=== PATIENT | male | born 1990 | race Caucasian/White ===

== ENCOUNTER 2019-09-05 15:25 | Inpatient (IN) | payer SELFPAY ==
[~2019-09-05] VITALS: Ht 188 cm; Wt 101.1 kg
--- NOTE | 2019-09-05 16:31 | PHYS DOC ---
Past History Past Medical History: Alcoholism, Asthma, Seizure Past Surgical History: Other Additional Past Surgical Histo: left humerus fx Additional Smoking Information: chews tobacco Alcohol Use: Heavy Adult General Chief Complaint Chief Complaint: ALCOHOL INTOXICATION HPI HPI 29-year-old male presents with alcohol intoxication. He tells me he drinks 24-30 cans of beer a day. He hasn't been doing this for a long time. He would like to stop drinking. He has been through detox in the past. He tried to stop drinking on his own yesterday and developed shakes. He would like to go to an inpatient program. His last drink of alcohol was an hour ago. Review of Systems Review of Systems Constitutional: Denies fever or chills [] Eyes: Denies change in visual acuity, redness, or eye pain [] HENT: Denies nasal congestion or sore throat [] Respiratory: Denies cough or shortness of breath [] Cardiovascular: No additional information not addressed in HPI [] GI: Denies abdominal pain, nausea, vomiting, bloody stools or diarrhea [] : Denies dysuria or hematuria [] Musculoskeletal: Denies back pain or joint pain [] Integument: Denies rash or skin lesions [] Neurologic: Denies headache, focal weakness or sensory changes [] Endocrine: Denies polyuria or polydipsia [] All other systems were reviewed and found to be within normal limits, except as documented in this note. Allergies Allergies Allergies Coded Allergies Type Severity Reaction Last Updated Verified No Known Drug Allergies 09/05/19 No Physical Exam Physical Exam Constitutional: Well developed, well nourished, no acute distress, non-toxic appearance. [] HENT: Normocephalic, atraumatic, bilateral external ears normal, oropharynx moist, no oral exudates, nose normal. [] Eyes: PERRLA, EOMI, conjunctiva normal, no discharge. [] Neck: Normal range of motion, no tenderness, supple, no stridor. [] Cardiovascular:Heart rate regular rhythm, no murmur [] Lungs & Thorax: Bilateral breath sounds clear to auscultation [] Abdomen: Bowel sounds normal, soft, no tenderness, no masses, no pulsatile masses. [] Skin: Warm, dry, no erythema, no rash. [] Back: No tenderness, no CVA tenderness. [] Extremities: No tenderness, no cyanosis, no clubbing, ROM intact, no edema. [] Neurologic: Alert and oriented X 3, normal motor function, normal sensory function, no focal deficits noted. [] Psychologic: Affect normal, judgement normal, mood normal. [] Current Patient Data Vital Signs Vital Signs Date Time Temp Pulse Resp B/P (MAP) Pulse Ox O2 Delivery O2 Flow Rate FiO2 09/05/19 15:50 97.8 78 18 135/74 (94) 96 Room Air EKG EKG [] Radiology/Procedures Radiology/Procedures [] Course & Med Decision Making Course & Med Decision Making Pertinent Labs and Imaging studies reviewed. (See chart for details) Patient's alcohol was 387. We'll have to admit him to the hospital because he cannot be screened for a detox facility with alcohol this level. He also has elevated liver enzymes consistent with alcohol consumption. I spoke with Dr. Sergey jernigan and he has accepted the patient for admission. [] Dragon Disclaimer Dragon Disclaimer This electronic medical record was generated, in whole or in part, using a voice recognition dictation system. Departure Departure: Impression: Primary Impression: Alcohol intoxication Disposition: ADMITTED INPATIENT Admitting Physician: Yen Bird Condition: STABLE Referrals: PCP,UNKNOWN (PCP) AMENA ESPOSITO DO Sep 05, 2019 16:31
[2019-09-05 16:40] LABS: BASO # 0.1 x10^3/uL (0.0-0.2); BASO % 1 % (0-3); EOS # 0.1 x10^3/uL (0.0-0.7); EOS % 2 % (0-3); HEMATOCRIT 44.6 % (39.0-53.0); HEMOGLOBIN 14.7 g/dL (13.0-17.5); LYMPH # 2.4 x10^3/uL (1.0-4.8); LYMPH % 33 % (24-48); MEAN CORPUSCULAR HEMOGLOBIN 32 pg (25-35); MEAN CORPUSCULAR HGB CONC 33 g/dL (31-37); MEAN CORPUSCULAR VOLUME 97 fL (79-100); MONO # 0.5 x10^3/uL (0.0-1.1); MONO % 8 % (0-9); NEUT # 4.1 x10^3uL (1.8-7.7); NEUT % 57 % (31-73); PLATELET COUNT 130 x10^3/uL (140-400); RED CELL DISTRIBUTION WIDTH 15.1 % (11.5-14.5); WHITE BLOOD COUNT 7.3 x10^3/uL (4.0-11.0)
[2019-09-05 16:54] LABS: CALCIUM 8.4 mg/dL (8.5-10.1); CREATININE 0.6 mg/dL (0.7-1.3); GFR 157.1; POTASSIUM 4.2 mmol/L (3.5-5.1)
[2019-09-05 16:59] LABS: BARBITURATES NEG (NEG); BENZODIAZEPINES NEG (NEG); CANNABINOIDS NEG (NEG); COCAINE NEG (NEG); METHADONE NEG (NEG); OPIATES NEG (NEG); PHENCYCLIDINE NEG (NEG)
[2019-09-05 17:00] LABS: ALBUMIN 3.7 g/dL (3.4-5.0); ALBUMIN/GLOBULIN RATIO 0.7 (1.0-1.7); TOTAL BILIRUBIN 1.9 mg/dL (0.2-1.0); TOTAL PROTEIN 8.7 g/dL (6.4-8.2)
[2019-09-05 17:01] LABS: AMPHETAMINE/METHAMPHETAMINE NEG (NEG)
[2019-09-05 17:09] LABS: BACTERIA,URINE 0 /HPF (0-FEW); BILIRUBIN,URINE NEG (NEG); CLARITY,URINE CLEAR; COLOR,URINE STRAW; GLUCOSE,URINE NEG (NEG); NITRITE,URINE NEG (NEG); SQUAMOUS EPITHELIAL CELL,UR OCC /LPF; UROBILINOGEN,URINE 0.2 mg/dL (0.2 mg/dL); WBC,URINE OCC /HPF (0-4)
[2019-09-05] MEDS ORDERED: MVI, ADULT NO.4 WITH VIT K 10 ML, FOLIC ACID INJ 1 MG, THIAMINE INJ 100 MG in IV NORMAL... IV ONE ×4 (17:30)
[2019-09-05] MEDS ORDERED: ONDANSETRON PF 4 MG/2 ML VIAL. IV PRN (18:15)
--- NOTE | 2019-09-05 18:45 | NUR ---
Admission Note: Pt transported via EMS from ED to ICU room 2. Pt able to ambulate from cart to bed with no assistance. Pt changed into hospital gown and pajama pants. VSS. No c/o pain, n/v, tremors not noted, no sweating, no hallucinations. Advised pt of plan of care, pt agrees. Oriented pt to room, call button, and safety (bed rails padded). Will continue to monitor. Dr. Bird called for alcohol withdrawal orders. Entered.
[2019-09-05 19:00] VITALS: BP 119/79
[2019-09-05] MEDS ORDERED: HALOPERIDOL LACT 5 MG/ML VIAL. IM PRN (19:15)
[2019-09-05] MEDS ORDERED: LORazepam 40 MG in IV NORMAL SALINE 250ML 250 ML IV PRN (19:15)
[2019-09-05] MEDS ORDERED: cloNIDine HCL 0.1 MG TABLET PO PRN (19:15)
[2019-09-05] MEDS ORDERED: diphenhydrAMINE 50 MG/ML VIAL IVP PRN (19:15)
[2019-09-05] MEDS ORDERED: chlordiazePOXIDE HCL 25 MG CAPSULE PO PRN (19:15)
[2019-09-05] MEDS: LORazepam 1 MG TABLET PO PRN ×2 (19:48→20:18)
[2019-09-05 20:00] VITALS: BP 126/62
[2019-09-05 21:00] VITALS: BP 116/64
[2019-09-05 22:00] VITALS: BP 106/43
[2019-09-05 23:00] VITALS: BP 111/68
[2019-09-06] VITALS (24 sets, daily range): BP systolic 101–142; BP diastolic 51–91
[2019-09-06] MEDS: LORazepam 1 MG TABLET PO PRN ×4 (02:21→23:13)
--- NOTE | 2019-09-06 05:02 | NUR ---
Shift Note: Pt a/o x4, VSS, no c/o pain, pt voiding clear yellow urine, CIWA assessed q2hr throughout night, ativan 8mg po given at 1948 and 0221 per CIWA scale and orders. Pt able to sleep throughout night. Oxygen 2 liters NC added d/t pt desat to 85% when sleeping. Pt expresses a desire for IP treatment facility when discharged. Pt also admits he will need a great deal of help to overcome his drinking problem (father, mother, and siblings all drink and pt's lives w/father).
[2019-09-06] MEDS: chlordiazePOXIDE HCL 25 MG CAPSULE PO PRN ×2 (07:32→12:32)
--- NOTE | 2019-09-06 07:44 | NUR ---
PT is able to verbalize understanding of poc. PT shaky, still AxOx3. Pt is visually shaky see ciwa. Will continue to monitor closely. Anjum CASTANEDA
[2019-09-06 08:22] LABS: HEMATOCRIT 41.6 % (39.0-53.0); HEMOGLOBIN 13.8 g/dL (13.0-17.5); RED BLOOD COUNT 4.26 x10^6/uL (4.30-5.70); RED CELL DISTRIBUTION WIDTH 15.3 % (11.5-14.5); WHITE BLOOD COUNT 5.5 x10^3/uL (4.0-11.0)
[2019-09-06 08:31] LABS: ALBUMIN 3.2 g/dL (3.4-5.0); ALBUMIN/GLOBULIN RATIO 0.6 (1.0-1.7); CALCIUM 7.9 mg/dL (8.5-10.1); CREATININE 0.7 mg/dL (0.7-1.3); GFR 131.5; MAGNESIUM 1.7 mg/dL (1.8-2.4); POTASSIUM 4.1 mmol/L (3.5-5.1); TOTAL BILIRUBIN 1.5 mg/dL (0.2-1.0); TOTAL PROTEIN 8.2 g/dL (6.4-8.2)
[2019-09-06] MEDS: MVI, ADULT NO.4 WITH VIT K 10 ML, THIAMINE INJ 100 MG, FOLIC ACID INJ 1 MG in IV NORMAL... IV SCH ×4 (17:35)
--- NOTE | 2019-09-06 17:48 | NUR ---
PT has done very well today. Compliant, and was able to eat all three meals today independently. PT does have tremor, PRN Ativan helps. PT is 24 hours out from last drink as of now. Will continue to monitor. Anjum CASTANEDA
--- NOTE | 2019-09-06 19:59 | HP ---
ADMIT DATE: 09/05/2019 HISTORY OF PRESENT ILLNESS: The patient is a 29-year-old male patient who presented to the emergency room with alcohol intoxication. He stated that he drinks between 24-30 cans of beer a day. He has been doing this for a long time. He would like to stop drinking, has been through detox in the past. He tried to stop drinking on his own and yesterday he developed shakes. He would like to go to an inpatient program. His last drink of alcohol was about an hour prior to arrival to the emergency room. He was evaluated in the emergency room and his lab work showed that his liver enzymes are markedly elevated. Urinalysis was unremarkable. His blood alcohol level was 387 mg/dL and therefore the patient was admitted for detoxification. PAST MEDICAL HISTORY: Significant for bronchial asthma, has had seizure disorder whenever he stops drinking and obviously alcoholism. PAST SURGICAL HISTORY: Significant for left humeral fracture, status post open reduction and internal fixation. ALLERGIES: He has no known drug allergies. FAMILY HISTORY: Noncontributory. SOCIAL HISTORY: He lives with his girlfriend, apparently he is . His ex- lives in [place] and he has a child with her and child with his girlfriend who herself does not drink. 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 PHYSICAL EXAMINATION: GENERAL: On arrival to the emergency room, the patient was clearly intoxicated, but well-developed, well-nourished 29-year-old male in no acute distress. There is no pallor, jaundice, cyanosis, or thyromegaly. No jugular venous distension. No lower limb edema. VITAL SIGNS: Heart rate was 77, blood pressure was 119/72, temperature was 97.9, respiratory rate was 14 and oxygen saturation was 97% on 2 liters of oxygen. HEAD, EYES, EARS, NOSE AND THROAT: Showed normocephalic, atraumatic. NECK: Supple. HEART: Showed normal first and second heart sounds. No gallop, rub or murmur. CHEST: Clear to auscultation. No crepitation or rhonchi. ABDOMEN: Distended, soft, nontender. NEUROLOGIC: He was grossly intact. LABORATORY DATA: On admission showed that his white cell count was 7300, hemoglobin 15, hematocrit 45, MCV 97 and platelet count of 130,000. Serum sodium was 140, potassium 4.2, chloride 103, bicarbonate 22, anion gap of 15, BUN 4, creatinine 0.6, estimated GFR was 157 mL per minute. His glucose was 96, calcium was 8.4. Total bilirubin is 1.6. AST, ALT, alkaline phosphatase are all elevated. Total protein was 8.7, albumin was 3.7. Urinalysis was essentially unremarkable and toxic screen was negative except for a blood alcohol level of 387. ASSESSMENT AND PLAN: In summary, this is a 29-year-old male patient who came, admitted for alcohol intoxication. Given his blood alcohol level, he was admitted to the hospital. He has obviously markedly impaired liver enzymes consistent with alcohol-induced liver disease. He was started on alcohol withdrawal protocol with the banana bag. We will repeat his lab work and blood alcohol level and once he has gone through the alcohol withdrawal, we will also contact our social service liaison to see if he can be admitted to a detox facility. ZHAO MUELLER MD DR: SANTIAGO/lauryn JOB#: [id number] / [id number]
--- NOTE | 2019-09-06 22:59 | PN ---
DATE: 09/06/2019 SUBJECTIVE: The patient is resting, slightly propped up in bed, in no apparent respiratory distress. He is definitely awake, alert, has insight into his problems. However, he has been drinking since he was 14 years old, and apparently lives around people who are also drinking alcohol, although according to him, he now lives with his father, has alcoholic liver cirrhosis and end-stage renal disease, on hemodialysis. PHYSICAL EXAMINATION: GENERAL: When I saw him today, he looked well and was clearly in no apparent respiratory distress. VITAL SIGNS: Stable. His heart rate was 75, blood pressure 114/63, temperature was 97.9, respiratory rate was 15, and oxygen saturation was 98%. The rest of clinical exam is stable. LABORATORY DATA: His lab works showed that his blood alcohol level is down to 13. His serum sodium was 142, potassium 4.1, chloride 104, bicarbonate 28, anion gap of 10, BUN 5, creatinine 0.7, estimated GFR was 131 mL per minute. Glucose was 98, calcium was 7.9, magnesium was 1.7. Total bilirubin, AST, ALT, alkaline phosphatase are elevated, although they are trending down. His total protein was 8.2 and albumin was 3.2. ASSESSMENT AND PLAN: In summary, this is a patient who was admitted with alcohol intoxication. He is probably going into alcohol withdrawal and he is now on alcohol withdrawal protocol. He gets a banana bag together with all other medication available. ZHAO MUELLER MD DR: SANTIAGO/lauryn JOB#: [id number] / [id number]
[2019-09-07] VITALS (24 sets, daily range): BP systolic 97–141; BP diastolic 50–82
--- NOTE | 2019-09-07 01:53 | NUR ---
Pt is finally resting at this time. Pt was extremely restless earlier. See CIWA scale. Pt just dropped O2 sats to 89%, oxygen placed on patient. Will continue to monitor.
[2019-09-07 05:43] LABS: ALBUMIN/GLOBULIN RATIO 0.6 (1.0-1.7); CALCIUM 8.2 mg/dL (8.5-10.1); CREATININE 0.5 mg/dL (0.7-1.3); GFR 193.9; MAGNESIUM 1.8 mg/dL (1.8-2.4); POTASSIUM 3.9 mmol/L (3.5-5.1); TOTAL BILIRUBIN 3.9 mg/dL (0.2-1.0); TOTAL PROTEIN 7.9 g/dL (6.4-8.2)
[2019-09-07] MEDS ORDERED: ONDANSETRON ODT 4 MG TAB.RAPDIS PO PRN (07:45)
[2019-09-07] MEDS: LORazepam 1 MG TABLET PO PRN ×3 (07:54→23:17)
--- NOTE | 2019-09-07 08:05 | NUR ---
UPON ASSESSMENT BRUISE NOTED TO R SIDE WHEN ASKING PATIENT ABOUT THE BRUISE PT STATES "I WAS LOADING WOOD AND FELL AND HAD A SEIZURE AND FELL." PT REPORTS HE HAS NOT SEEN A NEUROLOGIST. PT IS IN SEIZURE PRECAUTIONS WITH BOTH UPPER AND LOWER SIDE RAILS PADDED.
--- NOTE | 2019-09-07 09:31 | NUR ---
PT IS PLEASANT AT THIS TIME. PT APPEARS TO BE IN MILD DISTRESS. NO COMPLAINTS OF PAIN UPON ASSESSMENT. PT HAS AN UNSTEADY GAIT AND TREMORS TO BILATERAL ARMS. ATIVAN GIVEN TO HELP WITH SYMPTOMS. PT WAS ABLE TO EAT ALL OF HIS BREAKFAST. VSS. WILL CONTINUE TO ASSESS NECESSARY.
[2019-09-07] MEDS: MVI, ADULT NO.4 WITH VIT K 10 ML, THIAMINE INJ 100 MG, FOLIC ACID INJ 1 MG in IV NORMAL... IV SCH ×4 (18:18)
--- NOTE | 2019-09-07 23:11 | PN ---
DATE: 09/07/2019 SUBJECTIVE: The patient is resting, slightly propped up in bed, continued to complain of being shaky. Denied any nausea or vomiting. He continued to be on a banana bag and alcohol withdrawal protocol, so far received 2 doses of Ativan 4 mg orally. PHYSICAL EXAMINATION: GENERAL: When I saw him this afternoon, he looked well and was clearly in no apparent respiratory distress, no pallor, but slightly jaundiced, not cyanosed. No lymphadenopathy, no thyromegaly. No jugular venous distention. No lower limb edema. VITAL SIGNS: Her heart rate was 63, blood pressure 116/67, temperature was 98.2, respiratory rate was 18 and oxygen saturation was 98% on room air. HEAD, EYES, EARS, NOSE AND THROAT: Showed normocephalic, atraumatic. NECK: Supple. HEART: Showed normal first and second heart sounds. No gallop, rub or murmur. CHEST: Clear to auscultation. No crepitation or rhonchi. ABDOMEN: Distended, soft, nontender. No guarding or rigidity. No organomegaly. All hernial orifice intact. Bowel sounds normal. NEUROLOGIC: He was continued to be somewhat tremulous, but without any obvious lateralizing sign. LABORATORY DATA: Showed that his serum sodium was 138, potassium 3.9, chloride 104, bicarbonate 23, anion gap of 11, BUN 8, creatinine 0.5, estimated GFR was 193 mL per minute, glucose was 99, calcium was 8.2, magnesium was 1.8. Total bilirubin 3.9. AST, ALT, alkaline phosphatase are elevated, although they are drifting down except bilirubin is going up. His total protein was 7.9, albumin 3. ASSESSMENT: In summary, this is a 29-year-old male patient who was admitted with alcohol intoxication and alcohol withdrawal. He has also alcohol withdrawal seizures before. PLAN: To continue with alcohol withdrawal protocol for now. I will repeat all his lab work tomorrow and he is stable and his lab works are all within normal range. He can be discharged home. ZHAO MUELLER MD DR: SANTIAGO/lauryn JOB#: [id number] / [id number]
[2019-09-08] VITALS (10 sets, daily range): BP systolic 110–134; BP diastolic 54–86
--- NOTE | 2019-09-08 02:15 | NUR ---
Pt woke up confused and accidentally ripped out IV. Pt woke up and reoriented to place. Pt requested Ativan and it was given per EMAR. Call light in reach. Will continue to monitor.
[2019-09-08] MEDS: LORazepam 1 MG TABLET PO PRN ×3 (02:26→11:26)
--- NOTE | 2019-09-08 04:40 | NUR ---
Pt woke up angry and adament to leave. Told pt it was 0430 in the morning and he stated, "that's the time I normally wake up." Pt got dressed in his own clothes and laid back down. Call light in place. Bed alarm on. Will continue to monitor.
[2019-09-08 06:46] LABS: ALBUMIN 3.3 g/dL (3.4-5.0); ALBUMIN/GLOBULIN RATIO 0.7 (1.0-1.7); CALCIUM 8.5 mg/dL (8.5-10.1); CREATININE 0.6 mg/dL (0.7-1.3); GFR 157.1; TOTAL PROTEIN 8.2 g/dL (6.4-8.2)
[2019-09-08 06:48] LABS: TOTAL BILIRUBIN 3.8 mg/dL (0.2-1.0)
--- NOTE | 2019-09-08 14:37 | NUR ---
CALLED [facility] FOR LIST OF OUTPATIENT SERVICES THAT ARE GOVERNMENT FUNDED DUE TO THE FACT THE PT HAS NO INSURANCE AND NO SOURCE OF INCOME AT THIS TIME. [facility] GAVE PHONE NUMBER FOR [facility]. INFORMATION GIVEN TO PATIENT TO FOLLOW UP WITH THEM TOMORROW.
--- NOTE | 2019-09-08 15:00 | NUR ---
DR. MUELLER AT BEDSIDE DISCUSSING DISCHARGE INSTRUCTIONS WITH PATIENT. PT AGREES TO FOLLOW UP WITH [facility] TOMORROW MORNING AND TO TAKE HIS MEDICATIONS PRESCRIBED.
[2019-09-08] MEDS ORDERED: LACT10SO26 PO ×2 (15:26→15:27)
[2019-09-08] MEDS ORDERED: LORA-254 PO (15:32)
--- NOTE | 2019-09-08 16:13 | NUR ---
Discharge Note: [facility] ICU BED 2 Discharge instructions and discharge home medications reviewed with Patient and a copy given. All questions have been answered and understanding verbalized. The following instructions and handouts were given: TAKE LACTULOSE 10 ML BID; TAKE ATIVAN PRESCRIBED. FOLLOW UP WITH [facility] TOMORROW MORNING. NO ALCOHOL INTAKE. Discontinued lines and drains: DISCONTINUE IV IN L HAND. PRESSURE APPLIED. BANDAGE APPLIED. Patient discharged to HOME ACCOMPANIED BY HIS FATHER.
--- NOTE | 2019-09-08 16:28 | DS ---
DATE OF DISCHARGE: HOSPITAL COURSE: The patient is a 29-year-old male patient who was admitted through the Emergency Room with alcohol intoxication. He apparently has been drinking between 24-30 cans of beer a day, has been doing this for almost 16 years now. He would like to stop drinking and has been through detox in the past. He tried to stop drinking on his own and yesterday he developed shakes and therefore he drank and came to the Emergency Room, wanting some help. When he arrived to the Emergency Room, his blood alcohol level was 387 mg/dL. Therefore, he was admitted for detoxification. He did very well. He was treated with banana bag and alcohol withdrawal protocol. His blood alcohol level has normalized. His liver enzymes are trending down, although his ammonia is slightly elevated. PHYSICAL EXAMINATION: GENERAL: When I saw this afternoon, he looked well and was clearly in no apparent respiratory distress. No pallor. He is jaundiced, but not cyanosed ___ thyromegaly. No jugular venous distention. No limb edema. VITAL SIGNS: His heart rate was 82, blood pressure was 114/61, temperature was 98, respiratory rate was 18 and oxygen saturation was 94%. HEAD, EYES, EARS, NOSE AND THROAT: Showed normocephalic, atraumatic. NECK: Supple. HEART: Showed normal first and second heart sounds. No gallop, rub or murmur. CHEST: Clear to auscultation. No crepitation or rhonchi. ABDOMEN: Distended, soft, nontender. No guarding or rigidity. No organomegaly. All hernial orifice intact. Bowel sounds normal. NEUROLOGIC: He is definitely more awake, alert, responding appropriately. All his cranial nerves are intact. EXTREMITIES: He moves extremities without difficulty, ambulates without assistance or assistive devices. LABORATORY DATA: This morning, his white cell count was 5500, hemoglobin 13.8, hematocrit 42, MCV 98 and platelet count of 119,000. Serum sodium was 139, potassium 4, chloride 104, bicarbonate 24, anion gap of 11, BUN 9, creatinine 0.6, estimated GFR was 157 mL per minute, his glucose was 87, calcium was 8.5. Total bilirubin is up, but trending down to 3.8. His AST is down and ALT is normal. Alkaline phosphatase is trending down. His ammonia is slightly up at 60. Total protein was 8.2, albumin was 3.3. His urinalysis was unremarkable. Toxic screen was positive for blood alcohol level, it was 387 on admission and yesterday was down to 30 mg. FINAL DISCHARGE DIAGNOSES: Alcohol intoxication, alcohol withdrawal. He has also alcohol-induced seizures before. The patient discharged home with a prescription for tapering course of Ativan as well as lactulose. He was given the telephone number for ([facility]) [facility] to point him to the right direction where he can get help. ZHAO MUELLER MD DR: SANTIAGO/lauryn JOB#: [id number] / [id number]
== END 2019-09-08 16:00 | disposition home or self-care (01) | DRG 897 ==
LOC: ER 15:25 → ICU 18:18
PROVIDERS: ADMIT Internal Medicine; ATTEND Internal Medicine
DX: F10.229 Alcohol dependence with intoxication, unspecified (principal); Y90.8 Blood alcohol level of 240 mg/100 ml or more; G40.909 Epilepsy, unspecified, not intractable, without status epilepticus; J45.909 Unspecified asthma, uncomplicated; F10.239 Alcohol dependence with withdrawal, unspecified; Z87.891 Personal history of nicotine dependence
CPT/HCPCS: 36415; 80053; 80307; 81001; 82140; 83735; 84484; 85025; 85027; 85610; G0480; J2060; J7030